=== PATIENT | female | born 1985 | race African-American/Black ===

== ENCOUNTER 2019-05-31 10:18 | Day surgery (SDC) | payer OTHER ==
[2019-05-31] MEDS ORDERED: Sodium Chloride 0.9% 10 ML FLUSH Syringe IJ ONE (10:19)
[2019-05-31] MEDS ORDERED: Depo-Medrol 40 MG/ML IM ONE (10:19)
[2019-05-31] MEDS ORDERED: Ketamine HCl 50 MG/ML ONE (11:03)
[2019-05-31] MEDS ORDERED: DIPRIVAN 200 MG/20 ML IV ONE (11:03)
--- NOTE | 2019-05-31 12:24 | XRAY ---
Indication: Right L4-S1 transforaminal ANA. Intraoperative fluoroscopy was provided for 29 seconds. 4 digital spot images submitted for interpretation demonstrates posterior needle tips projecting over the expected course of the right L4 and L5 nerve roots. Small amount of contrast injected for needle tip placement. Correlate with intraoperative findings/report.
--- NOTE | 2019-05-31 12:30 | XRAY ---
29 seconds fluoroscopy time in surgery for right L4-S1 transforaminal ANA.
[2019-05-31] MEDS ORDERED: Lactated Ringers 1,000 ML IV ONE (14:44)
== END 2019-05-31 11:35 | disposition home or self-care (01) ==
LOC: SDC-PAIN 10:18
PROVIDERS: ATTEND Psychiatry & Neurology Pain Medicine
DX: M54.16 Radiculopathy, lumbar region (principal)
CPT/HCPCS: 64483; 64484; 72100; 77003; 84703; J1030; J2704; Q9966

== ENCOUNTER 2019-08-16 11:15 | Day surgery (SDC) | payer BC, OTHER ==
[2019-08-16] MEDS ORDERED: Depo-Medrol 40 MG/ML IM ONE (11:16)
[2019-08-16] MEDS ORDERED: Marcaine 0.5% SDV 10 ML IM ONE (11:16)
[2019-08-16] MEDS ORDERED: DIPRIVAN 200 MG/20 ML IV ONE (12:58)
[2019-08-16] MEDS ORDERED: Ketamine HCl 50 MG/ML ONE (12:59)
--- NOTE | 2019-08-16 13:21 | XRAY ---
Indication: Right SI joint injection. Intraoperative fluoroscopy was provided for 15 seconds. 2 digital spot images submitted for interpretation demonstrate posterior needle tip projecting over the inferior right SI joint. Correlate with intraoperative findings/report.
--- NOTE | 2019-08-16 13:23 | XRAY ---
15 seconds fluoroscopy time in surgery for right SI joint injection.
[2019-08-16] MEDS ORDERED: Lactated Ringers 1,000 ML IV ONE (14:47)
== END 2019-08-16 13:11 | disposition home or self-care (01) ==
LOC: SDC-PAIN 11:15
PROVIDERS: ATTEND Psychiatry & Neurology Pain Medicine
DX: M46.1 Sacroiliitis, not elsewhere classified (principal); F41.8 Other specified anxiety disorders; Z79.899 Other long term (current) drug therapy
CPT/HCPCS: 64451; 72020; 77002; 84703; J1030; J2704

== ENCOUNTER 2019-09-27 10:57 | Day surgery (SDC) | payer BC, OTHER ==
[2019-09-27] MEDS ORDERED: Marcaine 0.5% SDV 10 ML IJ ONE (10:58)
[2019-09-27] MEDS ORDERED: Xylocaine 1% Vial 30 ML PF IJ ONE (10:58)
[2019-09-27] MEDS ORDERED: Depo-Medrol 40 MG/ML IM ONE (10:58)
[2019-09-27] MEDS ORDERED: Ketamine HCl 50 MG/ML ONE (12:27)
[2019-09-27] MEDS ORDERED: DIPRIVAN 200 MG/20 ML IV ONE (12:27)
--- NOTE | 2019-09-27 13:47 | XRAY ---
Indication: Right SI joint injection. Intraoperative fluoroscopy was provided for 13 seconds. 2 digital spot images submitted for interpretation demonstrates posterior needle tip projecting over the inferior right SI joint. Correlate with intraoperative findings/report.
--- NOTE | 2019-09-27 13:49 | XRAY ---
13 seconds fluoroscopy time in surgery for right SI joint.
[2019-09-27] MEDS ORDERED: Lactated Ringers 1,000 ML IV ONE (15:56)
== END 2019-09-27 12:55 | disposition home or self-care (01) ==
LOC: SDC-PAIN 10:57
PROVIDERS: ATTEND Psychiatry & Neurology Pain Medicine
DX: M46.1 Sacroiliitis, not elsewhere classified (principal); Z79.899 Other long term (current) drug therapy
CPT/HCPCS: 27096; 72020; 77002; 84703; J1030; J2001; J2704; G0260